=== PATIENT | male | born 1955 | race Two or more races ===

== ENCOUNTER 2019-02-01 18:28 | Inpatient (IN) | payer MEDICAID, OTHER ==
--- NOTE | 2019-02-01 18:56 | ED ---
HPI Chest Pain - HPI Summary HPI Summary: A 63 y/o male brought in by [facility] ambulance presents to [facility] with a chief complaint of mid sternal chest pain since 15:30 today. He has a Hx of [place] and has two stents, with her most recent being in 2008. He reports a Hx of HTN and denies a Hx of DM. He also reports bladder cancer and is planning on having surgery. He denies any Hx of blood clots in his legs or lungs but says that his right calf has been swelling up for the past 3-4 months. He says that he smokes less than 10 cigarettes per day. He was given NTG CARTON WRAPPER and it helped some because his pain was a 9/10 and is now a 7/10 in severity. - History of Current Complaint Chief Complaint: EDChestPainROMI Time Seen by Provider: 02/01/19 18:46 Hx Obtained From: Patient, EMS Onset/Duration: Started Hours Ago, Still Present Time of Onset: 15:30 Timing: Constant, Lasting Hours Initial Severity: Severe Current Severity: Severe Pain Intensity: 7 Pain Scale Used: 0-10 Numeric Chest Pain Location: Mid Sternal Chest Pain Radiates: No Character: Other: - unable to describe Aggravating Factor(s): Nothing Alleviating Factor(s): Nothing Associated Signs and Symptoms: Positive: Calf Pain/Swelling - right calf swelling. Negative: Fever - Allergy/Home Medications Allergies/Adverse Reactions: Allergies Allergy/AdvReac Type Severity Reaction Status Date / Time Fish Containing Products Allergy Anaphylatic Verified 02/01/19 23:59 Shock NSAIDS (Non-Steroidal Allergy Unknown Verified 02/01/19 18:57 Anti-Inflamma Reaction Details Home Medications: Home Medications Albuterol HFA INHALER* [Ventolin HFA Inhaler*] 2 puff INH Q6H PRN 02/01/19 [ History Confirmed 02/01/19] Aspirin EC TAB* [Ecotrin EC Low Dose 81 MG*] 81 mg PO DAILY 02/01/19 [History Confirmed 02/01/19] Atorvastatin* [Lipitor*] 40 mg PO QPM 02/01/19 [History Confirmed 02/01/19] Clopidogrel TAB* [Plavix TAB*] 75 mg PO DAILY 02/01/19 [History Confirmed ] Levetiracetam XR TAB(NF) [Keppra XR (NF)] 750 mg PO BID 02/01/19 [History Confirmed 02/01/19] Metoprolol Tartrate TAB* [Lopressor TAB*] 25 mg PO BID 02/01/19 [History Confirmed 02/01/19] Nitroglycerin TAB 0.4 MG* 0.4 mg SL Q5M PRN 02/01/19 [History Confirmed 02/01/19 ] Oxybutynin TAB* [Ditropan TAB*] 5 mg PO BID 02/01/19 [History Confirmed 02/01/19 ] Ranolazine (NF) [Ranexa (NF)] 500 mg PO BID 02/01/19 [History Confirmed 02/01/19 ] Topiramate [Topamax] 50 mg PO DAILY 02/01/19 [History Confirmed 02/01/19] PMH/Surg Hx/FS Hx/Imm Hx Endocrine/Hematology History: Denies: Hx Diabetes Cardiovascular History: Reports: Hx Hypertension, Hx Myocardial Infarction Infectious Disease History: Yes Infectious Disease History: Denies: Traveled Outside the [place] in Last 30 Days - Family History Known Family History: Positive: Hypertension, Other - positive: colon cancer, CVA - Social History Alcohol Use: None Hx Substance Use: No Substance Use Type: Reports: None Hx Tobacco Use: Yes Smoking Status (MU): Light Every Day Tobacco Smoker Type: Cigarettes - less than 10 per day Review of Systems Negative: Fever Positive: Chest Pain Positive: Other - positive: right calf swelling All Other Systems Reviewed And Are Negative: Yes Physical Exam - Summary Physical Exam Summary: GENERAL: Patient is a well-developed and nourished M who is lying comfortable in the stretcher. Patient is not in any acute respiratory distress. HEAD AND FACE: Normocephalic EYES: PERRLA, EOMI x 2. EARS: Hearing grossly intact. MOUTH: Oropharynx within normal limits. NECK: Supple, trachea is midline, no adenopathy, no JVD, no carotid bruit. CHEST: Symmetric, no tenderness at palpation LUNGS: Clear to auscultation bilaterally. No wheezing or crackles. CVS: Regular rate and rhythm, S1 and S2 present, no murmurs or gallops appreciated. ABDOMEN: Soft, non-tender. Bowel sounds are normal. No abnormal abdominal pulsations. EXTREMITIES: TTP in right posterior calf but did not appreciate any swelling or redness NEURO: Alert and oriented x 3. No acute neurological deficits. Speech is normal and follows commands. SKIN: Dry and warm Triage Information Reviewed: Yes Vital Signs On Initial Exam: Initial Vitals Temp Pulse Resp BP Pulse Ox 97.2 F 65 18 125/67 97 02/01/19 18:35 02/01/19 18:35 02/01/19 18:35 02/01/19 18:35 02/01/19 18:35 Vital Signs Reviewed: Yes Diagnostics - Vital Signs Vital Signs Temp Pulse Resp BP Pulse Ox 02/01/19 18:35 97.2 F 65 18 125/67 97 - Laboratory Result Diagrams: 02/02/19 06:13 02/02/19 06:14 Lab Statement: Any lab studies that have been ordered have been reviewed, and results considered in the medical decision making process. - Radiology CXR Radiology Interpretation Completed By: ED Physician Summary of Radiographic Findings: No acute process. Pending official imaging report. - EKG 18:38 Cardiac Rate: Bradycardia - 59 bpm EKG Rhythm: Sinus Bradycardia Summary of EKG Findings: EKG at 18:38 showed sinus bradycardia at 59 bpm, ST elevation in V2 and V3 but similar to EKG done in 2009. Chest Pain Course/Dx - Course Course Of Treatment: A 63 y/o male brought in by [facility] ambulance presents to [facility] with a chief complaint of mid sternal chest pain since 15:30 today. The physical exam revealed TTP in right posterior calf but did not appreciate any swelling or redness. EKG at 18:38 showed sinus bradycardia at 59 bpm, ST elevation in V2 and V3 but similar to EKG done in 2008. In the ED course the patient was given NTG SL, Morphine IV and Plavix PO. CXR showed no acute process. Blood work and chemistries obtained. Troponin of 0.01 at 18:58. The patient will be admitted. Case discussed with hospitalist, Dr. Baugh. I discussed results with patient. The patient agrees with this plan. - Diagnoses Provider Diagnoses: Chest pain - Provider Notifications Discussed Care Of Patient With: Stephen Malone Time Discussed With Above Provider: 18:51 Instructed by Provider To: Other - agrees that the EKG looks just like the EKG done in 2009. Discharge - Sign-Out/Discharge Documenting (check all that apply): Patient Departure - admit Patient Received Moderate/Deep Sedation with Procedure: No - Discharge Plan Condition: Fair Disposition: ADMITTED TO [facility] - Billing Disposition and Condition Condition: FAIR Disposition: Admitted to [facility] - Attestation Statements Document Initiated by Audrey: Yes Documenting Scribe: Angel Roberson Provider For Whom Tane is Documenting (Include Credential): Estee Mims MD Scribe Attestation: Angel Pradhan, scribed for Estee Mims MD on 02/02/19 at 1108. Scribe Documentation Reviewed: Yes Provider Attestation: The documentation as recorded by the Angel perez accurately reflects the service I personally performed and the decisions made by me, Gianna Mims MD Status of Scribe Document: Viewed Consult Consult: Discussed case with Dr. Baugh, hospitalist, who accepted the patient for admission.
[2019-02-01] MEDS ORDERED: Nitroglycerin TAB 0.4 MG* 0.4 MG TAB SL ONE (19:03)
[2019-02-01 19:18] LABS: ABS Eosinophils 0.1 10^3/ul (0-0.6); ABS Lymphocytes 1.9 10^3/ul (1.0-4.8); ABS Monocytes 0.9 10^3/ul (0-0.8); Hematocrit 44 % (42-52); Hemoglobin 14.9 g/dL (14.0-18.0); INR 1.43 (0.82-1.09); Mean Corpuscular HGB Conc 34 g/dL (31-36); Mean Corpuscular Hemoglobin 32 pg (27-31); Mean Corpuscular Volume 95 fL (80-94); Mean Platelet Volume 9.4 fL (7.4-10.4); Nucleated Red Blood Cells % 0.1; Platelet Count 143 10^3/uL (150-450); Red Blood Count 4.65 10^6 /uL (4.18-5.48); Red Cell Distribution Width 14 % (10-15)
[2019-02-01 19:25] LABS: Troponin I 0.01 ng/mL (<0.04)
[2019-02-01 19:30] LABS: Albumin/Globulin Ratio 1.6 (1-3); BUN/Creatinine Ratio 14.5 (8-20); EGFR African American 82.1 (>60); EGFR Non-African American 67.8 (>60); Globulin 2.5 g/dL (2-4); Potassium 3.9 mmol/L (3.5-5.0); Total Bilirubin 0.5 mg/dL (0.2-1.0); Total Protein 6.5 g/dL (6.4-8.9)
[2019-02-01] MEDS ORDERED: Morphine 4 MG/ML VIAL (1 ml) 4 MG/ML VIAL IV ONE (19:53)
[2019-02-01] MEDS ORDERED: Clopidogrel TAB* 75 MG PO ONE (19:54)
[2019-02-01 20:55] LABS: HIV 4th Generation Negative (Negative)
--- NOTE | 2019-02-01 22:07 | HP ---
History of Present Illness - History of Present Illness Reason for Visit: Chest Pain History of Present Illness: 63yoM inmate with PMHx HTN, has a Hx of [place] and has two stents, with her most recent being in 2008. Here due to chest pain, substernal radiating to left jaw, sublingual nitro helped a bit for the pain but the pain recurred so had to use morphine in ER. Some chest tightness and uneasy with breathing. Palpitations, broke out in to massive sweats, one episode of vomiting. Also complaining of right calf swelling and cramps. 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 Lobato Urinary incontinence Insomnia Hepatitis C positive from tattoo history resolved on its own Past Surgical History Cystoscopy with right uretheral reimplantation in 2012 Multiple abdominal surgeries for transitional cell Ca of right kidney. Cardiac Cath in 2008 Family History Father 89 of heart attack but prior to that had total 6 [place] with stents. Mother 69 of colon cancer. Social History Alcohol Use: None Hx Substance Use: No Substance Use Type: Reports: None. Tried weed when he was younger. Hx Tobacco Use: Yes Smoking Status (MU): Light Every Day Tobacco Smoker Type: Cigarettes - less than 10 per day trying to give it up. Allergies/Adverse Reactions: Allergy/AdvReac Type Severity Reaction Status Date / Time NSAIDS (Non-Steroidal Allergy Unknown Verified 02/01/19 18:57 Anti-Inflamma Reaction Details Home Medications: Albuterol HFA INHALER* [Ventolin HFA Inhaler*] 2 puff INH Q6H PRN 02/01/19 [ History Confirmed 02/01/19] Aspirin EC TAB* [Ecotrin EC Low Dose 81 MG*] 81 mg PO DAILY 02/01/19 [History Confirmed 02/01/19] Atorvastatin* [Lipitor*] 40 mg PO QPM 02/01/19 [History Confirmed 02/01/19] Clopidogrel TAB* [Plavix TAB*] 75 mg PO DAILY 02/01/19 [History Confirmed ] Levetiracetam XR TAB(NF) [Keppra XR (NF)] 750 mg PO BID 02/01/19 [History Confirmed 02/01/19] Metoprolol Tartrate TAB* [Lopressor TAB*] 25 mg PO BID 02/01/19 [History Confirmed 02/01/19] Nitroglycerin TAB 0.4 MG* 0.4 mg SL Q5M PRN 02/01/19 [History Confirmed 02/01/19 ] Oxybutynin TAB* [Ditropan TAB*] 5 mg PO BID 02/01/19 [History Confirmed 02/01/19 ] Ranolazine (NF) [Ranexa (NF)] 500 mg PO BID 02/01/19 [History Confirmed 02/01/19 ] Topiramate [Topamax] 50 mg PO DAILY 02/01/19 [History Confirmed 02/01/19] Review of Systems - Measurements Intake and Output: Intake and Output Last 24 Hours 01/30/19 01/31/19 02/01/19 02/02/19 06:59 06:59 06:59 06:59 Weight 184 lb - Review of Systems Constitutional Symptoms: Negative: Fever Thyroid: Positive: Sweatiness Pulmonary: Negative: Cough Cardiology: Positive: Chest Pain, Shortness of Breath, Palpitations Gastroenterology: Positive: Nausea, Vomiting Negative: Abdominal Pain Objective Vital Signs - 8 hr 02/01/19 02/01/19 02/01/19 18:35 18:38 18:41 Temperature 97.2 F Pulse Rate 65 60 Respiratory 18 5 16 Rate Blood Pressure 125/67 125/67 (mmHg) O2 Sat by Pulse 97 97 Oximetry 02/01/19 02/01/19 02/01/19 19:00 19:09 19:17 Temperature Pulse Rate 66 57 58 Respiratory 15 19 16 Rate Blood Pressure 121/69 124/69 (mmHg) O2 Sat by Pulse 99 99 99 Oximetry 02/01/19 02/01/19 02/01/19 19:39 20:00 20:09 Temperature Pulse Rate 62 59 64 Respiratory 17 18 16 Rate Blood Pressure 110/65 109/67 (mmHg) O2 Sat by Pulse 97 98 99 Oximetry 02/01/19 20:17 Temperature Pulse Rate Respiratory 18 Rate Blood Pressure (mmHg) O2 Sat by Pulse Oximetry Oxygen Devices in Use Now: None Eyes: No Scleral Icterus, PERRLA Ears/Nose/Mouth/Throat: NL Teeth, Lips, Gums, Mucous Membranes Moist Neck: NL Appearance and Movements; NL JVP Respiratory: Clear to Auscultation Cardiovascular: NL Sounds; No Murmurs; No JVD, RRR Abdominal: NL Sounds; No Tenderness; No Distention, No Hepatosplenomegaly, - - Large midline surgical scar. Extremities: - - Right calf tenderness and swelling Skin: No Rash or Ulcers Neurological: Alert and Oriented x 3, NL Sensation, NL Muscle Strength and Tone Nutrition: Taking PO's Result Diagrams: 02/01/19 18:58 02/01/19 18:58 Diagnostic Imaging: Portable CXR No evidence of cardiopulmonary disease. Official radiology read pending. EKG Data: Sinus Bradycardia at 59bpm. Some J-point elevation however when compared to old EKG from 2009 no significant change. Assess/Plan/Problems-Billing Assessment: 63yoM inmate with CAD s/p stents, WPW syndrome, Renal Ca here due to chest pain and right calf swelling. - Patient Problems (1) Chest pain Current Visit: Yes Status: Acute Code(s): R07.9 - CHEST PAIN, UNSPECIFIED SNOMED Code(s): 81024893 Comment: Serial Troponins. A1c, Lipid panel. ECHO/Stress testing. No CTA given concurrent Right leg swelling due to the fact that he has history of renal Ca and doesn't have any other signs of PE such as tachycardia or hypoxia. (2) Right leg swelling Current Visit: Yes Status: Acute Code(s): M79.89 - OTHER SPECIFIED SOFT TISSUE DISORDERS SNOMED Code(s): 136527389 Comment: Follow up Venous dopplers of the RLE. Start prophylactic dose of lovenox for now. (3) Hypertension Current Visit: Yes Status: Chronic Code(s): I10 - ESSENTIAL (PRIMARY) HYPERTENSION SNOMED Code(s): 25507200 Comment: Restart home meds. (4) Hyperlipidemia Current Visit: Yes Status: Chronic Code(s): E78.5 - HYPERLIPIDEMIA, UNSPECIFIED SNOMED Code(s): 63775388 Comment: Restart home meds. (5) WPW (Qdefw-Gcnuwqiqs-Mlajm syndrome) Current Visit: Yes Status: Chronic Code(s): I45.6 - PRE-EXCITATION SYNDROME SNOMED Code(s): 41925884 Comment: Couldn't appreciate on today's EKG will monitor on tele. (6) Seizure disorder Current Visit: Yes Status: Chronic Code(s): G40.909 - EPILEPSY, UNSP, NOT INTRACTABLE, WITHOUT STATUS EPILEPTICUS SNOMED Code(s): 698619611 Comment: Alisia winchester (7) Renal cell cancer Current Visit: Yes Status: Chronic Code(s): C64.9 - MALIGNANT NEOPLASM OF UNSP KIDNEY, EXCEPT RENAL PELVIS SNOMED Code(s): 847156751 Comment: Out patient follow up (8) History of hepatitis C Current Visit: Yes Status: Chronic Code(s): Z86.19 - PERSONAL HISTORY OF OTHER INFECTIOUS AND PARASITIC DISEASES SNOMED Code(s): 37491710975851 Comment:
[2019-02-01] MEDS ORDERED: Nitroglycerin TAB 0.4 MG* 0.4 MG TAB SL PRN (23:08)
[2019-02-01] MEDS ORDERED: Albuterol HFA INHALER* 8 gm MDI INH PRN (23:08)
[2019-02-01] MEDS: Enoxaparin(*) 40 MG/0.4 ML SYR SUBCUT SCH (23:42)
[2019-02-01] MEDS: NS 0.9% 1000 ML** 1,000 ML IV SCH (23:42)
[2019-02-01] MEDS: Morphine INJ* 2 MG/ML 1 ML SYRINGE (TWO MG - NEW SYRINGE VERSION) IV PRN (23:42)
[2019-02-02 00:38] LABS: Urine Appearance Clear; Urine Bacteria Absent (Absent); Urine Bilirubin Negative (Negative); Urine Blood 2+ (Negative); Urine Color Yellow; Urine Glucose Negative (Negative); Urine Ketones Negative (Negative); Urine Nitrite Negative (Negative); Urine Protein Negative (Negative); Urine Red Blood Cell 3+(>10/hpf) (Absent); Urine Specific Gravity 1.023 (1.010-1.030); Urine Squamous Epithelial Cell Present (Absent); Urine Urobilinogen Negative (Negative); Urine White Blood Cell 3+(>20/hpf) (Absent)
[2019-02-02] MEDS: Morphine INJ* 2 MG/ML 1 ML SYRINGE (TWO MG - NEW SYRINGE VERSION) IV PRN ×5 (03:49→21:25)
[2019-02-02 07:22] LABS: ABS Eosinophils 0.1 10^3/ul (0-0.6); ABS Lymphocytes 2.5 10^3/ul (1.0-4.8); ABS Monocytes 0.7 10^3/ul (0-0.8); ABS Neutrophils 3.4 10^3/ul (1.5-7.7); Eosinophil % 2.1 %; Hematocrit 44 % (42-52); Mean Corpuscular HGB Conc 35 g/dL (31-36); Mean Corpuscular Hemoglobin 33 pg (27-31); Mean Corpuscular Volume 96 fL (80-94); Mean Platelet Volume 9.6 fL (7.4-10.4); Nucleated Red Blood Cells % 0.1; Platelet Count 128 10^3/uL (150-450); Red Blood Count 4.56 10^6 /uL (4.18-5.48); Red Cell Distribution Width 14 % (10-15); White Blood Count 6.8 10^3/uL (3.5-10.8)
[2019-02-02 07:39] LABS: BUN/Creatinine Ratio 14.5 (8-20); Calcium 8.2 mg/dL (8.6-10.3); EGFR African American 82.1 (>60); EGFR Non-African American 67.8 (>60); HDL Cholesterol 27.5 mg/dL; Potassium 3.6 mmol/L (3.5-5.0)
[2019-02-02] MEDS: Metoprolol Tartrate TAB* 25 MG PO SCH ×2 (07:46→21:25)
[2019-02-02] MEDS: CMCS:Ranolazine (NF) 500 MG TAB PO SCH ×2 (07:46→21:41)
[2019-02-02] MEDS: Topiramate TAB(*) 25 MG PO SCH (07:47)
[2019-02-02] MEDS: Oxybutynin TAB* 5 MG PO SCH ×2 (07:47→21:25)
[2019-02-02] MEDS: CMCS:Levetiracetam XR TAB(NF) 750 MG TAB.XR PO SCH ×2 (07:47→21:41)
[2019-02-02] MEDS: Aspirin EC TAB* 81 MG TAB.EC PO SCH (07:47)
[2019-02-02] MEDS: Clopidogrel TAB* 75 MG PO SCH (07:47)
[2019-02-02] MEDS: Acetaminophen TAB* 325 MG PO PRN ×2 (07:59→17:11)
[2019-02-02] MEDS ORDERED: Iodixanol* (CONTRAST) 320 MG/ML 100 ML SDV IV ONE (11:54)
--- NOTE | 2019-02-02 12:02 | PN ---
Subjective Date of Service: 02/02/19 Interval History: Patient reports that that he continues to have chest pain which he reports is relieved with morphine. States that he had an episode of diaphoresis and chest pain and vomited x 1 which felt similar to his previous [place]. Patient also c/o of neck pain that radiates down left arm with numbness and tingling. Patient reports that he developed difficulty with speaking at approximately 4 pm yesterday. denies headache, dizzinesses, facial droop, weakness on one side. does report numbness and tingling to left arm. Denies any abd pain pain n/v/d. currently denies shortness of breath. Family History: Unchanged from Admission Social History: Unchanged from Admission Past Medical History: Unchanged from Admission Objective Active Medications: Acetaminophen (Tylenol Tab*) 650 mg PO Q6H PRN PRN Reason: PAIN - MILD TO MODERATE Last Admin: 02/02/19 07:59 Dose: 650 mg Albuterol (Ventolin Hfa Inhaler*) 2 puff INH Q6H PRN PRN Reason: SHORTNESS OF BREATH Aspirin (Aspirin Ec Tab*) 81 mg PO DAILY [facility] Last Admin: 02/02/19 07:47 Dose: 81 mg Atorvastatin Calcium (Lipitor*) 40 mg PO QPM [facility] Clopidogrel Bisulfate (Plavix Tab*) 75 mg PO DAILY [facility] Last Admin: 02/02/19 07:47 Dose: 75 mg Enoxaparin Sodium (Lovenox(*)) 40 mg SUBCUT Q24H [facility] Last Admin: 02/01/19 23:42 Dose: 40 mg Sodium Chloride (Ns 0.9% 1000 Ml) 1,000 mls @ 75 mls/hr IV PER RATE [facility] Last Admin: 02/01/19 23:42 Dose: 75 mls/hr Levetiracetam (Keppra Xr (Nf)) 750 mg PO BID [facility]; Protocol Last Admin: 02/02/19 07:47 Dose: 750 mg Metoprolol Tartrate (Lopressor Tab*) 25 mg PO BID [facility] Last Admin: 02/02/19 07:46 Dose: 25 mg Morphine Sulfate (Morphine Inj (Syringe))*) 2 mg IV Q4H PRN PRN Reason: PAIN - MODERATE TO SEVERE Last Admin: 02/02/19 07:56 Dose: 2 mg Nitroglycerin (Nitroglycerin Tab 0.4 Mg*) 0.4 mg SL Q5M PRN PRN Reason: PAIN - CHEST Oxybutynin Chloride (Ditropan Tab*) 5 mg PO BID [facility] Last Admin: 02/02/19 07:47 Dose: 5 mg Ranolazine (Ranexa (Nf)) 500 mg PO BID [facility]; Protocol Last Admin: 02/02/19 07:46 Dose: 500 mg Topiramate (Topamax(*)) 50 mg PO DAILY [facility] Last Admin: 02/02/19 07:47 Dose: 50 mg Vital Signs - 8 hr 02/02/19 02/02/19 02/02/19 05:43 07:44 07:56 Temperature 97.9 F Pulse Rate 58 Respiratory 18 18 16 Rate Blood Pressure 129/86 (mmHg) O2 Sat by Pulse 99 Oximetry Oxygen Devices in Use Now: None Appearance: alert oriented x3 , disarthric at times Eyes: No Scleral Icterus Ears/Nose/Mouth/Throat: Clear Oropharnyx, Mucous Membranes Moist Neck: NL Appearance and Movements; NL JVP, Trachea Midline Respiratory: Symmetrical Chest Expansion and Respiratory Effort, Clear to Auscultation Cardiovascular: NL Sounds; No Murmurs; No JVD, No Edema Abdominal: NL Sounds; No Tenderness; No Distention Extremities: No Edema, No Clubbing, Cyanosis Skin: No Rash or Ulcers Neurological: Alert and Oriented x 3, - - speech is clear with disarthria noted , smile is equal, tongue midline, no facial asymmetry, left arm with fine tremor, no pronator drift, hand clam shucking machine tender are equal, no leg drift. push/pull intact to bilat upper and lower ext. Nutrition: Taking PO's Result Diagrams: 02/02/19 06:13 02/02/19 06:14 Microbiology and Other Data: Microbiology 02/01/19 23:45 Nasal Screen MRSA (PCR) - Final Nasal Mrsa Not Detected Diagnostic Imaging: Portable CXR No evidence of cardiopulmonary disease. Official radiology read pending. EKG Data: Sinus Bradycardia at 59bpm. Some J-point elevation however when compared to old EKG from 2008 no significant change. Assess/Plan/Problems-Billing Assessment: 63yoM inmate with CAD s/p stents, WPW syndrome, Renal Ca here due to chest pain and right calf swelling. Reports difficulty with speech since 4 pm yesterday. - Patient Problems (1) Chest pain Current Visit: Yes Status: Acute Code(s): R07.9 - CHEST PAIN, UNSPECIFIED SNOMED Code(s): 24902170 Comment: - patient reports that he has never had complete relief of his chest pain since admission- reports that morphine improves the pain but it returns. Patient reports that he takes MS contin 30 mg at home for renal cancer pain- will confirm with five points Serial Troponins- negative A1c 5.9 Lipid panel- LDL 33 ECHO/Stress testing- pending VL right leg pending (2) Difficulty with speech Current Visit: Yes Status: Acute Code(s): R47.9 - UNSPECIFIED SPEECH DISTURBANCES SNOMED Code(s): 857085087 Comment: - reports diffiuculty with speech since yesterday at 4 pm - noted to have difficulty with speech this AM during bedside evaluation - will order CT of the brain/ CTA head/ neck and MRI of brain- pending - consult to neurology - also noted to have fine tremor to left arm (3) Right leg swelling Current Visit: Yes Status: Acute Code(s): M79.89 - OTHER SPECIFIED SOFT TISSUE DISORDERS SNOMED Code(s): 494544806 Comment: Follow up Venous dopplers of the RLE. Start prophylactic dose of lovenox for now. (4) Hyperlipidemia Current Visit: Yes Status: Chronic Code(s): E78.5 - HYPERLIPIDEMIA, UNSPECIFIED SNOMED Code(s): 52086393 Comment: continue home medication (5) Hypertension Current Visit: Yes Status: Chronic Code(s): I10 - ESSENTIAL (PRIMARY) HYPERTENSION SNOMED Code(s): 56671788 Comment: Restart home meds. (6) Renal cell cancer Current Visit: Yes Status: Chronic Code(s): C64.9 - MALIGNANT NEOPLASM OF UNSP KIDNEY, EXCEPT RENAL PELVIS SNOMED Code(s): 457253696 Comment: - continue with outpatient follow up (7) Seizure disorder Current Visit: Yes Status: Chronic Code(s): G40.909 - EPILEPSY, UNSP, NOT INTRACTABLE, WITHOUT STATUS EPILEPTICUS SNOMED Code(s): 344482654 Comment: continue keppra Status and Disposition: inpatient
[2019-02-02] MEDS: NS 0.9% 1000 ML** 1,000 ML IV SCH (15:44)
[2019-02-02] MEDS: Atorvastatin* 40 MG TAB PO SCH (17:11)
--- NOTE | 2019-02-02 19:38 | CONS ---
NEUROLOGY CONSULTATION: DATE OF CONSULT: 02/02/19 REFERRING PROVIDER: Melissa Luevano NP. LOCATION: The patient is an inpatient in room 451. CHIEF COMPLAINT: Altered speech, left-sided numbness. HISTORY OF PRESENT ILLNESS: Arik Bowling is a 63-year-old right-handed inmate who presented to the [facility] on 02/01/19 with complaints of chest pain. He has a history of coronary artery disease with stenting in 2008. The chest pain was retrosternal and radiating to the left jaw and sublingual nitro glycerin helped to some extent, but did not resolve it. In the emergency room, he was given morphine . He had sweats and vomiting. Sometime after admission, he complained of difficulty speaking. He st ates he was slurring his words. He states at the same time he noticed numbness of the left arm and h and. With specific question, he has noticed some numbness of the left face. He has not noticed any numbness in the lower extremities. He has right calf pain and right ankle pain, which sound to be ch ronic. He is chronically on aspirin and Plavix because of his coronary artery disease and stents pre sumably. There is no prior history of stroke. He does have a history of transitional cell renal car cinoma with multiple surgeries around 2005 and then chemotherapy. He apparently is now in remission and is scheduled to see urologist for reevaluation. There is a history of both hypertension and hype rlipidemia, but not of diabetes. PAST MEDICAL HISTORY: 1. Hypertension. 2. Hyperlipidemia. 3. Coronary artery disease. 4. Tmpbx-Hvdpjwuhg-Fzncc syndrome. 5. Complex partial seizures. 6. Transitional cell renal cancer. 7. Insomnia. 8. Multiple abdominal surgeries. MEDICATIONS: On admission consist of: 1. Plavix 75 mg p.o. daily. 2. Aspirin 81 mg p.o. daily. 3. Keppra extended release 750 mg p.o. b.i.d. 4. Oxybutynin 5 mg p.o. b.i.d. 5. Topiramate 50 mg p.o. daily. FAMILY HISTORY: Noncontributory. REVIEW OF SYSTEMS: Notable for episodic migraines. He occasionally will get a visual scotoma with i t. He has chronic right ankle pain and uses a cane. No chronic shortness of breath. No current vis ual changes. No recent fevers. PHYSICAL EXAMINATION: He is well nourished and well hydrated. Temperature is 97.7, blood pressure 1 01/56, heart rate 52 and regular, respiratory rate is 18, and oxygen saturation is 98% on room air. Heart tones are normal. There are no cervical bruits. Lungs are clear. Oral mucosa is moist and at raumatic. Neurologic Exam: Pupils react equally from 4 to 2.5 mm. Eye movements are normal. Visual blunt are full to confrontation. Funduscopic exam is normal bilaterally. Facial musculature is symmetric. Fa cial sensation is reported as decreased pin in the left face relative to the right. Palate and tongu e appear normal, tongue protrudes in the midline, and palate rises symmetrically. He has an intermit tent stuttering dysarthria. Hearing is intact. Motor exam reveals normal strength proximally and distally in the upper and lower extremities. There is no pronator drift. Sensory exam is notable for diminished pin discrimination on the left side diffusely in the arm and l eg compared to the right. Light touch is intact. Reflexes are symmetric. Gait was not tested; he has ankle bracelets on. Language is fluent other than occasional stuttering. Memory seems intact. Attention, concentration, and fund of knowledge seem adequate. LABORATORY DATA/DIAGNOSTIC STUDIES: Laboratory data is notable for a normal CBC today, his white blo od cell count was slightly elevated at 11.0 yesterday, platelet count was 143,000 yesterday and is do wn to 128,000 today. INR at admission is elevated at 1.43. Chemistries are unremarkable. Troponin was 0.01 when he came in, 0.03 last night, 0.02 this morning. Liver enzymes are normal. Cholesterol this morning is 84 and LDL 33. Urinalysis is notable for 2+ blood, 3+ red blood cells, 3+ white blo od cells, absent bacteria, present yeast, 1+ leukocyte esterase. Other data notable for a CT angiogram of head and neck interpreted as normal. Brain CT apparently fol lowing the CTA with contrast did not demonstrate any masses. I could not pull up the images to review . Impression also with the CTA is that the venous sinuses demonstrate no evidence of thrombosis. IMPRESSION AND PLAN: Impression is that of a possible cerebrovascular event. Fortunately, a CT scan does not show any metastasis, but it is still possible he has a small metastasis not visible on CT. He has an MRI of the brain pending for Monday. Apparently, he has a stress test pending for Monday a s well. He is already on dual antiplatelet therapy and has hematuria, so I am very reluctant to augm ent his anticoagulation. Also, his platelet count has dropped a bit and his INR was elevated at base line. I think at this point I would just await the results of the MRI, schedule transthoracic echoca rdiogram and exercise stress test, and monitor him neurologically. I will continue to follow him derrick dawson with you. [id number]/[facility] #: [id number]
[2019-02-02] MEDS: Enoxaparin(*) 40 MG/0.4 ML SYR SUBCUT SCH (21:24)
[2019-02-03] MEDS: Morphine INJ* 2 MG/ML 1 ML SYRINGE (TWO MG - NEW SYRINGE VERSION) IV PRN ×4 (03:13→20:39)
[2019-02-03] MEDS: NS 0.9% 1000 ML** 1,000 ML IV SCH (05:25)
[2019-02-03] MEDS: CMCS:Levetiracetam XR TAB(NF) 750 MG TAB.XR PO SCH ×2 (08:48→20:28)
[2019-02-03] MEDS: Oxybutynin TAB* 5 MG PO SCH ×2 (08:48→20:33)
[2019-02-03] MEDS: Aspirin EC TAB* 81 MG TAB.EC PO SCH (08:48)
[2019-02-03] MEDS: Topiramate TAB(*) 25 MG PO SCH (08:48)
[2019-02-03] MEDS: Clopidogrel TAB* 75 MG PO SCH (08:48)
[2019-02-03] MEDS: CMCS:Ranolazine (NF) 500 MG TAB PO SCH ×2 (08:48→20:32)
[2019-02-03] MEDS: Metoprolol Tartrate TAB* 25 MG PO SCH ×2 (08:48→20:30)
[2019-02-03] MEDS: Multivitamins/Minerals TAB PO SCH (12:32)
--- NOTE | 2019-02-03 14:29 | CONS ---
NEUROLOGY CONSULT FOLLOWUP: DATE OF FOLLOWUP: 02/03/19 LOCATION: He is an inpatient in room 451. HOSPITALIST: Melissa Luevano NP CHIEF COMPLAINT: Left-sided numbness, difficulty with speech. INTERVAL HISTORY: Since yesterday, Mr. Bowling feels the same. He still feels numbness of his left side. He notes that he bit the inside of his left cheek. He otherwise has not noticed any problems swallowing. He still feels like his speech is off. MEDICATIONS: Are reviewed and he is on: 1. Albuterol inhaler q.6 hours p.r.n. 2. Aspirin 81 mg p.o. daily. 3. Atorvastatin 40 mg p.o. daily. 4. Plavix 75 mg p.o. daily. 5. Enoxaparin 40 mg subcutaneous q.24 hours. 6. Keppra XR 750 mg p.o. b.i.d. 7. Metoprolol 12.5 mg p.o. b.i.d. 8. Ditropan 5 mg p.o. b.i.d. 9. Ranexa 500 mg p.o. b.i.d. 10. Topiramate 50 mg p.o. daily. PHYSICAL EXAM: He is well nourished and well hydrated. Temperature 98.1, blood pressure 111/64, heart rate is running in the 50s. On neurological exam, facial musculature is symmetric. Palate and tongue appear normal and speech is clear. On motor exam, he feels normal. Strength in the upper extremities without drift. Finger taps are normal in the right hand and somewhat irregular and telegraphic in the left hand. There is no rest or action tremor. On sensory exam, he reports diminished pin and light touch in the left arm and face relative to the right. He reports diminished vibration in the left hand relative to the right. He has splitting of vibration on his forehead, however, declaring the right to be less than the left. LABORATORY DATA: There is no additional laboratory data since yesterday to review. IMPRESSION AND PLAN: Impression is that of a possible right hemisphere cerebrovascular event. He has some functionality to exam, however, in terms of splitting of vibration on his forehead and a functional appearing finger tapping abnormality in the left hand. He has an MRI scheduled for tomorrow which will help sort things out in terms of whether he has actually had a cerebrovascular event or not. [id number]/[facility] #: [id number] SYDNI
--- NOTE | 2019-02-03 16:01 | PN ---
Subjective Date of Service: 02/03/19 Interval History: Reports that chest pain has resolved. Continues to report difficulty with speech and feeling that his words are slurred. Denies chest pain or shortness of breath. Denies abd pain n/v/d. denies fever or chills Family History: Unchanged from Admission Social History: Unchanged from Admission Past Medical History: Unchanged from Admission Objective Active Medications: Acetaminophen (Tylenol Tab*) 650 mg PO Q6H PRN PRN Reason: PAIN - MILD TO MODERATE Last Admin: 02/02/19 17:11 Dose: 650 mg Albuterol (Ventolin Hfa Inhaler*) 2 puff INH Q6H PRN PRN Reason: SHORTNESS OF BREATH Aspirin (Aspirin Ec Tab*) 81 mg PO DAILY [facility] Last Admin: 02/03/19 08:48 Dose: 81 mg Atorvastatin Calcium (Lipitor*) 40 mg PO QPM [facility] Last Admin: 02/02/19 17:11 Dose: 40 mg Clopidogrel Bisulfate (Plavix Tab*) 75 mg PO DAILY [facility] Last Admin: 02/03/19 08:48 Dose: 75 mg Enoxaparin Sodium (Lovenox(*)) 40 mg SUBCUT Q24H [facility] Last Admin: 02/02/19 21:24 Dose: 40 mg Levetiracetam (Keppra Xr (Nf)) 750 mg PO BID [facility]; Protocol Last Admin: 02/03/19 08:48 Dose: 750 mg Metoprolol Tartrate (Lopressor Tab*) 12.5 mg PO BID [facility] Morphine Sulfate (Morphine Inj (Syringe))*) 1 mg IV Q4H PRN PRN Reason: PAIN - MODERATE TO SEVERE Last Admin: 02/03/19 15:26 Dose: 1 mg Multivitamins/Minerals (Theragran/Minerals Tab*) 1 tab PO DAILY [facility] Last Admin: 02/03/19 12:32 Dose: 1 tab Nitroglycerin (Nitroglycerin Tab 0.4 Mg*) 0.4 mg SL Q5M PRN PRN Reason: PAIN - CHEST Oxybutynin Chloride (Ditropan Tab*) 5 mg PO BID [facility] Last Admin: 02/03/19 08:48 Dose: 5 mg Ranolazine (Ranexa (Nf)) 500 mg PO BID [facility]; Protocol Last Admin: 02/03/19 08:48 Dose: 500 mg Topiramate (Topamax(*)) 50 mg PO DAILY [facility] Last Admin: 02/03/19 08:48 Dose: 50 mg Vital Signs - 8 hr 02/03/19 02/03/19 02/03/19 08:08 08:48 09:53 Temperature 97.6 F Pulse Rate 47 Respiratory 20 18 18 Rate Blood Pressure 116/68 (mmHg) O2 Sat by Pulse 98 Oximetry 02/03/19 02/03/19 02/03/19 11:52 15:15 15:26 Temperature 98.1 F 98.4 F Pulse Rate 51 55 Respiratory 19 16 16 Rate Blood Pressure 111/64 117/64 (mmHg) O2 Sat by Pulse 98 97 Oximetry Oxygen Devices in Use Now: None Appearance: alert, appears comfortable , no acute distress Eyes: No Scleral Icterus Ears/Nose/Mouth/Throat: Clear Oropharnyx, Mucous Membranes Moist Neck: NL Appearance and Movements; NL JVP, Trachea Midline Respiratory: Symmetrical Chest Expansion and Respiratory Effort, Clear to Auscultation Cardiovascular: NL Sounds; No Murmurs; No JVD, No Edema Abdominal: NL Sounds; No Tenderness; No Distention Extremities: No Edema, No Clubbing, Cyanosis Skin: No Rash or Ulcers Neurological: Alert and Oriented x 3, - - CN II-XII intact, no pronator drift, no leg drift, ext strength is equal, tongue is midline, speech is clear, hand binder and wrapper packer equal Nutrition: Taking PO's Result Diagrams: 02/02/19 06:13 02/02/19 06:14 Microbiology and Other Data: Microbiology 02/01/19 23:45 Nasal Screen MRSA (PCR) - Final Nasal Mrsa Not Detected Diagnostic Imaging: Portable CXR No evidence of cardiopulmonary disease. Official radiology read pending. EKG Data: Sinus Bradycardia at 59bpm. Some J-point elevation however when compared to old EKG from 2009 no significant change. Assess/Plan/Problems-Billing Assessment: 63yoM inmate with CAD s/p stents, WPW syndrome, Renal Ca here due to chest pain and right calf swelling. Reports difficulty with speech since 4 pm yesterday. - Patient Problems (1) Chest pain Current Visit: Yes Status: Acute Code(s): R07.9 - CHEST PAIN, UNSPECIFIED SNOMED Code(s): 01970433 Comment: - resolved - reports no pain today Patient reports that he takes MS contin 30 mg at home for renal cancer pain- 5 points with no record of this medication Serial Troponins- negative A1c 5.9 Lipid panel- LDL 33 ECHO/Stress testing- pending VL right leg - negative for DVT (2) Difficulty with speech Current Visit: Yes Status: Acute Code(s): R47.9 - UNSPECIFIED SPEECH DISTURBANCES SNOMED Code(s): 243405755 Comment: - reports diffiuculty with speech, fine tremor to left arm - contnues to c/o decreased sensationin left arm,leg,and face - noted to have difficulty with speech this AM during bedside evaluation - CT of the brain/ CTA head/ neck and MRI of brain- NO PE, CT brain - NO acute pathology - consult to neurology- will get MRI tomorrow w/wo contrast (3) Right leg swelling Current Visit: Yes Status: Acute Code(s): M79.89 - OTHER SPECIFIED SOFT TISSUE DISORDERS SNOMED Code(s): 692240169 Comment: Follow up Venous dopplers of the RLE.- NO EVIDENCE OF DEEP VENOUS THROMBOSIS IS IDENTIFIED. (4) Hyperlipidemia Current Visit: Yes Status: Chronic Code(s): E78.5 - HYPERLIPIDEMIA, UNSPECIFIED SNOMED Code(s): 09854227 Comment: continue home medication (5) Hypertension Current Visit: Yes Status: Chronic Code(s): I10 - ESSENTIAL (PRIMARY) HYPERTENSION SNOMED Code(s): 57282200 Comment: Restart home meds. (6) Renal cell cancer Current Visit: Yes Status: Chronic Code(s): C64.9 - MALIGNANT NEOPLASM OF UNSP KIDNEY, EXCEPT RENAL PELVIS SNOMED Code(s): 695401093 Comment: - continue with outpatient follow up (7) Seizure disorder Current Visit: Yes Status: Chronic Code(s): G40.909 - EPILEPSY, UNSP, NOT INTRACTABLE, WITHOUT STATUS EPILEPTICUS SNOMED Code(s): 639748064 Comment: continue keppra (8) DVT prophylaxis Current Visit: Yes Status: Acute Code(s): Z29.9 - ENCOUNTER FOR PROPHYLACTIC MEASURES, UNSPECIFIED SNOMED Code(s): 129576779 Comment: lovenox (9) Full code status Current Visit: Yes Status: Acute Code(s): Z78.9 - OTHER SPECIFIED HEALTH STATUS SNOMED Code(s): 258496186 Status and Disposition: inpatient- discharge when medically stable - likely tomorrow after stress test / MRI
[2019-02-03] MEDS: Acetaminophen TAB* 325 MG PO PRN (17:23)
[2019-02-03] MEDS: Atorvastatin* 40 MG TAB PO SCH (17:24)
[2019-02-03] MEDS: Enoxaparin(*) 40 MG/0.4 ML SYR SUBCUT SCH (22:00)
[2019-02-04] MEDS: Morphine INJ* 2 MG/ML 1 ML SYRINGE (TWO MG - NEW SYRINGE VERSION) IV PRN ×4 (01:30→15:09)
[2019-02-04] MEDS: Acetaminophen TAB* 325 MG PO PRN ×2 (04:17→13:18)
[2019-02-04 08:37] LABS: Hematocrit 45 % (42-52); Hemoglobin 15.4 g/dL (14.0-18.0); Mean Corpuscular HGB Conc 34 g/dL (31-36); Mean Corpuscular Hemoglobin 33 pg (27-31); Mean Corpuscular Volume 95 fL (80-94); Mean Platelet Volume 8.7 fL (7.4-10.4); Platelet Count 130 10^3/uL (150-450); Red Blood Count 4.73 10^6 /uL (4.18-5.48); Red Cell Distribution Width 14 % (10-15); White Blood Count 5.4 10^3/uL (3.5-10.8)
[2019-02-04 08:53] LABS: BUN/Creatinine Ratio 17.3 (8-20); Calcium 8.7 mg/dL (8.6-10.3); EGFR African American 82.1 (>60); EGFR Non-African American 67.8 (>60); Potassium 4.1 mmol/L (3.5-5.0)
[2019-02-04] MEDS: CMCS:Ranolazine (NF) 500 MG TAB PO SCH (09:58)
[2019-02-04] MEDS: Multivitamins/Minerals TAB PO SCH (09:59)
[2019-02-04] MEDS: Metoprolol Tartrate TAB* 25 MG PO SCH (09:59)
[2019-02-04] MEDS: Aspirin EC TAB* 81 MG TAB.EC PO SCH (09:59)
[2019-02-04] MEDS: Clopidogrel TAB* 75 MG PO SCH (10:00)
[2019-02-04] MEDS: Topiramate TAB(*) 25 MG PO SCH (10:00)
[2019-02-04] MEDS: CMCS:Levetiracetam XR TAB(NF) 750 MG TAB.XR PO SCH (10:01)
[2019-02-04] MEDS: Oxybutynin TAB* 5 MG PO SCH (10:01)
[2019-02-04] MEDS ORDERED: Gadoteridol* (CONTRAST) 279.3 MG/ML 10 ML IV ONE (11:04)
[2019-02-04] MEDS ORDERED: Regadenoson* 0.4 MG/5 ML SYRINGE ONE (12:20)
--- NOTE | 2019-02-04 16:19 | PN ---
Subjective Date of Service: 02/04/19 Length of Stay: 3 Days Neurology is following for subjective left sided paresthesia. Interval History: Reviewed Dr. Duran's consultation. The patient is a 63-year-old right-handed man who is incarcerated who has history of TIA, headaches, and reported seizures. He presented to [facility] with symptoms of left-side numbness and difficulty with speech. He continues to have left sided numbness. His speech pattern fluctuates as he sometimes has stuttering of speech. Today, the patient stated that he still has paresthesia from "head to toe" on the left. He is anxious and not sure why he is having these symptoms. He denied any headaches. He feels some fatigue in the left arm and leg. Brain MRI with/without contrast completed on 02/04/2019: subcentimeter focus of T2 Flair hyperintensity in the right frontal lobe which is nonspecific. No acute intracranial abnormality or stroke. Review of Systems: Denied CP, SOB, or palpitations. Family History: Unchanged from Admission Social History: Unchanged from Admission Past Medical History: Unchanged from Admission Objective Active Medications: Acetaminophen (Tylenol Tab*) 650 mg PO Q6H PRN PRN Reason: PAIN - MILD TO MODERATE Last Admin: 02/04/19 13:18 Dose: 650 mg Albuterol (Ventolin Hfa Inhaler*) 2 puff INH Q6H PRN PRN Reason: SHORTNESS OF BREATH Aspirin (Aspirin Ec Tab*) 81 mg PO DAILY [facility] Last Admin: 02/04/19 09:59 Dose: 81 mg Atorvastatin Calcium (Lipitor*) 40 mg PO QPM [facility] Last Admin: 02/03/19 17:24 Dose: 40 mg Clopidogrel Bisulfate (Plavix Tab*) 75 mg PO DAILY [facility] Last Admin: 02/04/19 10:00 Dose: 75 mg Enoxaparin Sodium (Lovenox(*)) 40 mg SUBCUT Q24H [facility] Last Admin: 02/03/19 22:00 Dose: 40 mg Levetiracetam (Keppra Xr (Nf)) 750 mg PO BID [facility]; Protocol Last Admin: 02/04/19 10:01 Dose: 750 mg Metoprolol Tartrate (Lopressor Tab*) 12.5 mg PO BID [facility] Last Admin: 02/04/19 09:59 Dose: 12.5 mg Morphine Sulfate (Morphine Inj (Syringe))*) 1 mg IV Q4H PRN PRN Reason: PAIN - MODERATE TO SEVERE Last Admin: 02/04/19 15:09 Dose: 1 mg Multivitamins/Minerals (Theragran/Minerals Tab*) 1 tab PO DAILY [facility] Last Admin: 02/04/19 09:59 Dose: 1 tab Nitroglycerin (Nitroglycerin Tab 0.4 Mg*) 0.4 mg SL Q5M PRN PRN Reason: PAIN - CHEST Oxybutynin Chloride (Ditropan Tab*) 5 mg PO BID [facility] Last Admin: 02/04/19 10:01 Dose: 5 mg Ranolazine (Ranexa (Nf)) 500 mg PO BID [facility]; Protocol Last Admin: 02/04/19 09:58 Dose: 500 mg Topiramate (Topamax(*)) 50 mg PO DAILY [facility] Last Admin: 02/04/19 10:00 Dose: 50 mg Vital Signs 02/03/19 02/03/19 02/03/19 17:25 20:00 20:25 Temperature Pulse Rate 61 Respiratory 16 20 Rate Blood Pressure 114/65 (mmHg) O2 Sat by Pulse Oximetry 02/03/19 02/03/19 02/03/19 20:39 20:53 21:40 Temperature 98.3 F Pulse Rate 55 Respiratory 19 20 19 Rate Blood Pressure 129/64 (mmHg) O2 Sat by Pulse 97 Oximetry 02/03/19 02/04/19 02/04/19 23:40 01:30 02:30 Temperature 98.2 F Pulse Rate 51 Respiratory 22 21 20 Rate Blood Pressure 110/57 (mmHg) O2 Sat by Pulse 97 Oximetry 02/04/19 02/04/19 02/04/19 03:21 03:34 05:36 Temperature 97.8 F Pulse Rate 52 Respiratory 20 20 Rate Blood Pressure 96/58 103/52 (mmHg) O2 Sat by Pulse 98 Oximetry 02/04/19 02/04/19 02/04/19 06:36 07:55 08:00 Temperature 97.8 F Pulse Rate 51 Respiratory 20 19 18 Rate Blood Pressure 101/50 (mmHg) O2 Sat by Pulse 98 Oximetry 02/04/19 02/04/19 02/04/19 10:02 13:00 15:09 Temperature 97.7 F Pulse Rate 51 Respiratory 18 16 16 Rate Blood Pressure 118/68 (mmHg) O2 Sat by Pulse 99 Oximetry Intake and Output Last 24 Hours 02/02/19 02/03/19 02/04/19 02/05/19 06:59 06:59 06:59 06:59 Intake Total 0 3825 4089 700 Output Total 275 3500 7200 1340 Balance -275 325 -3112 -640 Weight 196 lb 14.4 oz 196 lb 196 lb Intake: IV Fluids 1985 1529 Oral 0 1840 2560 700 Output: Urine 0 0 Diaz 200 3500 7200 1340 Residual 75 16 Fr 75 Other: Estimated Void Large Oxygen Devices in Use Now: None Neurology Exam: General: Well nourished, well developed, and in no acute distress HEENT: Normocephelic/atraumatic, sclera anicteric, mucous membranes moist Neck: Supple Chest: Clear to auscultation bilaterally Cardiovascular: Regular rate and rhythm without murmurs, rubs, gallops Abdomen: Soft, non-tender/non-distended Extremities: No clubbing, cyanosis, or edema Neurological Findings: Awake, alert, and oriented to person, place, and time. Speech: fluent without dysarthria, repetition intact Cranial Nerve: PERRL, EOM intact, VFF, no nystagmus, face symmetric bilaterally , facial sensation intact, hearing intact to finger rub bilaterally, palate elevates symmetrically, tongue midline, SCM and Trapezius s/s. Motor: s/s throughout, proximal and distal extremities x4 tone/bulk normal. Give way poor activation on the left shoulder abduction. Sensation: intact to LT/PP bilaterally upper and lower extremities Deep Tendon Reflex: 2+ symmetric in the upper/lower extremities, Babinski - down going Finger to nose, rapid alternating movements intact without tremor, no dysdiadochokinesia Gait: not assessed as patient has ankle cuffs. Result Diagrams: 02/04/19 08:25 02/04/19 08:25 Microbiology and Other Data: Microbiology 02/01/19 23:45 Nasal Screen MRSA (PCR) - Final Nasal Mrsa Not Detected Diagnostic Imaging: Portable CXR No evidence of cardiopulmonary disease. Official radiology read pending. EKG Data: Sinus Bradycardia at 59bpm. Some J-point elevation however when compared to old EKG from 2008 no significant change. Assessment/Plan A/P: 1. Subjective left hemiparesthesia involving the face with splitting of the vibratory sensation at the forehead: suggestive of a functional non-organic pathology. There is no stroke on MRI. Recommend outpatient psychiatric evaluation if his symptoms persist. 2. Abnormal MRI- the findings are nonspecific. However, since he has history of cancer, I recommend an MRI brain with and without contrast in 6 months (07/07). 3. Hx of reported seizures: continue Keppra.
[2019-02-04] MEDS: Atorvastatin* 40 MG TAB PO SCH (18:05)
[2019-02-04 18:32] VITALS: BP 106/67
--- NOTE | 2019-02-04 23:03 | EEG ---
ELECTROENCEPHALOGRAPHY: DATE OF SERVICE: 02/04/19 - ROOM #451 DATE READ: 02/04/19 ORDERED BY: Kuldeep Duran MD. INDICATION: Mr. Bowling is a 63-year-old man with subjective left-sided paresthesias. This EEG was obtained to evaluate for epileptiform abnormalities or electrographic seizures. MEDICATIONS: 1. Morphine. 2. Lipitor. 3. Levetiracetam. 4. Lopressor. 5. Ditropan. 6. Ranolazine. 7. Lovenox. 8. Aspirin. 9. Plavix. 10. Multivitamin. 11. Topamax. 12. Tylenol. 13. Ventolin. DURATION OF THE [id number]. CLINICAL STATE: Awake. REPORT: The waking background showed appropriate organization with clearly defined anterior-posterior voltage and frequency gradients. There was a well- defined posterior dominant rhythm of 11 Hz, which was symmetrical and showed normal reactivity. Anteriorly, there was an expected pattern of lower voltage, irregular, mixed faster frequency. Hyper-ventilation and photic stimulation were not performed. Single electrode EKG showed sinus bradycardia. Throughout the recording, there were no epileptiform discharges or electrographic seizures. CLINICAL IMPRESSION: This is a normal awake and drowsy EEG. There were no focal or epileptiform abnormalities. [id number]/[facility] #: [id number] [facility]
--- NOTE | 2019-02-05 03:37 | DS ---
DISCHARGE SUMMARY: DATE OF ADMISSION: 02/01/19 DATE OF DISCHARGE: 02/04/19 PROVIDER: Melissa Luevano NP. PRIMARY CARE PROVIDER: [facility]. ATTENDING PHYSICIAN WHILE IN THE HOSPITAL: Dr. Antelmo Huddleston * (dictated by Melissa Luevano NP). PRIMARY DIAGNOSES: 1. Noncardiac chest pain. 2. Slurred speech, functional nonorganic pathology. 3. Nonspecific abnormal MRI finding. SECONDARY DIAGNOSES: 1. Hypertension. 2. Hyperlipidemia. 3. Coronary artery disease, status post x2 stents at [facility] in 2008. 4. Ohyyq-Bntwzqdcyv-Lhpkk syndrome. 5. Absence seizures. 6. 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 Multiple surgeries and chemo. Recurred after initial remission and then back again after second remission. Scheduled to see urologist for further treatment, _ ____. 7. Urinary incontinence. 8. Insomnia. 9. Hepatitis C positive from tattoo history, resolved on its own. STUDIES COMPLETED IN THE HOSPITAL: The patient had a chest x-ray, radiologist' s impression: No active cardiopulmonary disease. The patient had an electrocardiogram, which showed sinus rhythm at a rate of 56. He had a CTA of the chest and thorax, no evidence of abnormal mass or fluid collection were identified. No pulmonary embolus. He had a CTA of the head and brain with and without contrast, radiologist's impression: Carotid arteries of the neck and head are unremarkable. Intracranial circulations demonstrates no evidence of branch occlusion or aneurysmal dilation. CT of the brain demonstrates no intracranial mass or hemorrhage. The venous sinuses demonstrate no evidence of thrombosis. Arachnoid granulations are noted in the transverse sinus bilaterally. He had venous Doppler, no evidence of deep vein thrombosis was identified. He had an MRI of the brain, radiologist's impression: No acute intracranial abnormality, no definite evidence of metastatic disease. There is a subcentimeter focus of T2 FLAIR hyperintensity in the right frontal lobe is nonspecific, however, with the patient's history of malignancy and proximate to the monzon matter junction, 6 months followup is recommended with contrast. The patient had a nuclear stress test, which was low risk, no evidence of infarct or ischemia. DISCHARGE MEDICATIONS: No new home medications. Continued home medications: 1. Multivitamin 1 tablet p.o. daily. 2. Topamax 50 mg p.o. daily. 3. Aspirin 81 mg p.o. daily. 4. Albuterol HFA inhaler 2 puffs q.6 hours as needed. 5. Nitroglycerin 0.4 mg sublingual q.5 minutes as needed for chest pain. 6. Ranexa 500 mg p.o. b.i.d. 7. Keppra 750 mg p.o. b.i.d. 8. Oxybutynin 500 mg p.o. b.i.d. 9. Clopidogrel 75 mg p.o. daily. 10. Atorvastatin 40 mg p.o. q.p.m. 11. Metoprolol 25 mg p.o. b.i.d. 12. Acetaminophen 650 mg p.o. q.6 hours p.r.n. HISTORY OF PRESENT ILLNESS AND HOSPITAL COURSE: Mr. Bowling is a 63-year-old gentleman inmate at [facility] with a past medical history significant for hypertension and history of AL with 2 stent placements with most recent being in 2008, who presented to the emergency room with complaints of chest pain radiating to his left jaw. Initially, having nitro helped the pain, but it recurred and then received morphine with relief. Some of the chest pain made him feel uneasy with his breathing, palpitations, he broke out into massive sweats, 1 episode of vomiting and also complained of right calf pain and cramping. Due to these findings, we were asked to see and evaluate the patient for admission. During the hospitalization, the patient complained of some difficulty with his speech and left arm numbness and weakness in his left leg. He was then seen and consulted by Neurology. He had a full workup with an echo, CTA of the head and neck, which showed no acute disease and MRI of the brain, which again showed no acute infarct, felt that this was a functional deficit. The patient underwent a nuclear stress test, which was low risk. Due to the negative findings of his exam, he was seen by Neurology and had a negative stress test at that time. He is stable for discharge back to [facility]. REVIEW OF SYSTEMS: The patient denies any fever or chills. He does continue to complain of intermittent chest pain that he reports radiates from his right flank up into his chest. He associates it with his kidney pain. He denies any diaphoresis, sweating, shortness of breath, or palpitations. He denies any abdominal pain, nausea, vomiting, or diarrhea. He denies any dysuria or urinary frequency. The patient does self-cath at baseline. Neurologic: The patient does continue to complain of intermittent difficulty with speaking and tingling on the left side. He is able to move all 4 extremities. Handgrips are equal. Strength is equal in his upper and lower extremities. He is neurologically intact. Skin is intact. PHYSICAL EXAMINATION: General: At this time, Mr. Bowling is alert and oriented, resting on his bed in this hospital room. HEENT: Head is atraumatic, normocephalic. Eyes: EOMs are intact. Sclerae anicteric and not pale. Oral mucosa appeared to be moist. Neck is supple. Lungs are clear to auscultation bilaterally. No wheezes, rales or rhonchi. Cardiac: S1, S2, regular rate and rhythm. No murmurs, rubs or gallops. Abdomen: Soft and nontender. Bowel sounds are present x4. Neurologic: He is awake, alert, oriented x3. Speech is clear at this time. He does have occasional lisp. Handgrips are equal. Upper extremity strength is intact. He does have some decreased sensation noted to the left side per patient's reports. Cranial nerves II through XII are grossly intact. At this time, Mr. Bowling is stable for discharge home. Vital sings are as follows. Blood pressure 118/68, temperature was 97.7, heart rate is 51, respirations 16, O2 saturation 99%. DISCHARGE PLAN: Mr. Bowling will be discharged back to [facility]. Activity as tolerated. 1. Chest pain, noncardiac. The patient had negative troponins x3. He had a low risk nuclear stress test. The patient should continue on his home medications of aspirin 81 mg p.o. daily, clopidogrel 75 mg p.o. daily, atorvastatin 40 mg p.o. daily, metoprolol 12.5 mg p.o. b.i.d. The patient should follow up with a foundation director as an outpatient. Follow up with his primary care provider for further management of his noncardiac chest pain. 2. Difficulty with speech. He was seen in consultation by Neurology, who feels this is a functional deficit. His MRI was negative for acute stroke. The patient continued to have intermittent symptoms of left arm numbness and tingling and decreased sensation on the left side. Speech is intermittently slurred. The patient should continue on Plavix, aspirin, and atorvastatin as previously prescribed and Neurology has recommended a psychiatric evaluation as an outpatient. 3. Coronary artery disease. The patient should continue on his home medications as previously prescribed. 4. Psychiatric issues. The patient should continue on his psychiatric medications as previously prescribed. He does report that he takes Cymbalta. 5. History of absence seizures. The patient should continue on Keppra 750 mg p.o. b.i.d. 6. History of renal cell carcinoma. The patient should follow up with his urologist as an outpatient for further management. 7. Nonspecific abnormality on the MRI. Radiology has recommended due to the patient's history of renal carcinoma repeat MRI in 6 months with and without contrast for further evaluation of the abnormality seen on the MRI. This was also recommended by Neurology. The patient should follow of his primary care provider in 4 to 7 days. He should follow up with his urologist for further management of his reported renal cell carcinoma. The patient was instructed to rerun to the emergency room for any chest pain, shortness of breath, any syncope or any other concerning symptoms. The patient should follow up with his primary care provider in 4 to 7 days. I have discussed this with my attending, Dr. Antelmo Huddleston, he is in agreement with my plan. MELISSA LUEVANO, CHERRY [id number]/[facility] #: [id number] SYDNI
== END 2019-02-04 19:00 | DRG 198 ==
LOC: ED 18:28 → MEDTELE 22:27 → EEVIPCON 22:27 → OBSVTOIN 22:27
PROVIDERS: ADMIT Internal Medicine; ATTEND Internal Medicine
DX: R07.89 Other chest pain (principal); C64.1 Malignant neoplasm of right kidney, except renal pelvis; R47.81 Slurred speech; R93.0 Abnormal findings on diagnostic imaging of skull and head, not elsewhere classified; I10 Essential (primary) hypertension; E78.5 Hyperlipidemia, unspecified; I25.10 Atherosclerotic heart disease of native coronary artery without angina pectoris; I45.6 Pre-excitation syndrome; G40.A09 Absence epileptic syndrome, not intractable, without status epilepticus; R32 Unspecified urinary incontinence; M79.89 Other specified soft tissue disorders; F17.210 Nicotine dependence, cigarettes, uncomplicated; R20.0 Anesthesia of skin; G47.00 Insomnia, unspecified; Z95.5 Presence of coronary angioplasty implant and graft; Z86.19 Personal history of other infectious and parasitic diseases; Z82.49 Family history of ischemic heart disease and other diseases of the circulatory system; Z80.0 Family history of malignant neoplasm of digestive organs; Z88.6 Allergy status to analgesic agent; Z79.82 Long term (current) use of aspirin; Z79.51 Long term (current) use of inhaled steroids; Z79.899 Other long term (current) drug therapy
CPT/HCPCS: 36415; 70496; 70498; 70553; 71045; 71275; 78452; 80048; 80053; 80061; 81003; 81015; 83036; 84484; 85025; 85027; 85379; 85610; 87086; 87389; 87641; 93005; 93017; 93306; 95816; 99283; A9270-GY; A9502; A9579; J1650; J2270; J2785; Q9967

== ENCOUNTER 2019-02-27 20:35 | Emergency (ER) | payer OTHER ==
[2019-02-27] MEDS ORDERED: Morphine 10 MG/ML VIAL (1 ml) IV ONE (20:44)
[2019-02-27] MEDS ORDERED: NS 0.9% 1000 ML** 1,000 ML IV ONE (20:44)
[2019-02-27] MEDS ORDERED: Nitro 2% OINT* (Nitroglycerin) 1 INCH/PAK PAK TOPICAL ONE (20:44)
--- NOTE | 2019-02-27 20:48 | ED ---
HPI Chest Pain - HPI Summary HPI Summary: The patient is a 64 y/o M arriving by ambulance with a chief complaint of sudden onset sharp left anterior CP starting at 1830. He reports that he was at rest reading a book when the pain began. The pain radiates to the left neck and jaw. He additionally c/o SOB and diaphoresis but denies nausea and vomiting. The staff at the correctional facility he [facility] at administered one 324mg ASA , and EMS administered 2 sublingual NTG en route, but his pain is still present rated 9/10 in severity. EKG en route shows ST elevations per transporters. SBP en route was 98mmHg. He notes that he had a cardiac stress test 3 weeks ago without any abnormalities, but he is scheduled for a cardiac cath but unsure of date. He also has bladder cancer with upcoming cystoscopy. PMHx: angina, CAD, HLD, HTN, NM with two stent placements, bladder cancer. FHx: HTN. Light every day cigarette smoker, no EtOH, no substance use. - History of Current Complaint Time Seen by Provider: 02/27/19 20:38 Hx Obtained From: Patient, EMS Onset/Duration: Started Hours Ago - at 1830, Still Present Time of Onset: 18:30 Timing: Lasting Hours Initial Severity: Severe Current Severity: Severe Pain Intensity: 9 Pain Scale Used: 0-10 Numeric Chest Pain Location: Left Anterior Chest Pain Radiates: Yes Chest Pain Radiates To:: Jaw, Neck Character: Sharp/Stabbing Aggravating Factor(s): Nothing Alleviating Factor(s): Nothing - administered 324mg ASA and 2 SL NTG without relief Associated Signs and Symptoms: Positive: Chest Pain, Shortness of Breath, Diaphoresis. Negative: Nausea, Vomiting - Additional Pertinent History Primary Care Physician: [id number] - Allergy/Home Medications Allergies/Adverse Reactions: Allergies Allergy/AdvReac Type Severity Reaction Status Date / Time acetaminophen Allergy Unknown Verified 02/28/19 03:31 Reaction Details Fish Containing Products Allergy Anaphylatic Verified 02/27/19 21:41 Shock NSAIDS (Non-Steroidal Allergy Unknown Verified 02/27/19 21:41 Anti-Inflamma Reaction Details phenazopyridine Allergy Unknown Verified 02/27/19 21:41 [From Pyridium] Reaction Details PMH/Surg Hx/FS Hx/Imm Hx Endocrine/Hematology History: Denies: Hx Diabetes Cardiovascular History: Reports: Hx Angina, Hx Coronary Artery Disease - 2 stents, Hx Hypercholesterolemia, Hx Hypertension, Hx Myocardial Infarction, Other Cardiovascular Problems/Disorders - Robin parkinson white Denies: Hx Pacemaker/ICD Respiratory History: Reports: Hx Asthma, Other Respiratory Problems/Disorders - smoker History: Reports: Other Problems/Disorders - self caths Sensory History: Reports: Hx Contacts or Glasses Denies: Hx Hearing Aid Opthamlomology History: Reports: Hx Contacts or Glasses Neurological History: Reports: Hx Seizures Psychiatric History: Denies: Hx Panic Disorder - Cancer History Cancer Type, Location and Year: 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 NM with 2 stents. Cystoscopy. HERNIA REPAIR Infectious Disease History: No Infectious Disease History: Reports: Hx of Known/Suspected MRSA Denies: Traveled Outside the [place] in Last 30 Days - Family History Known Family History: Positive: Hypertension, Other - positive: colon cancer, CVA - Social History Alcohol Use: None Hx Substance Use: No Substance Use Type: Reports: None Hx Tobacco Use: Yes Smoking Status (MU): Light Every Day Tobacco Smoker Type: Cigarettes Review of Systems Positive: Skin Diaphoresis Positive: Chest Pain - left anterior radiates Positive: Shortness Of Breath Positive: Myalgia - neck and jaw pain radiating from chest All Other Systems Reviewed And Are Negative: Yes Physical Exam - Summary Physical Exam Summary: Appearance: Well-appearing, Well-nourished, lying in bed comfortably Skin: Warm, dry, no obvious rash Eyes: sclera anicteric, no conjunctival pallor ENT: mucous membranes moist, pharynx appears normal Neck: Supple, nontender Respiratory: Clear to auscultation, no signs of respiratory distress Cardiovascular: Normal S1, S2. No murmurs. Normal distal pulses in tibial and radial bilaterally. Abdomen: Soft, nontender, normal active bowel sounds present Musculoskeletal: Normal, Strength/ROM Intact Neurological: A&Ox3, awake and alert, mentation is normal, speech is fluent and appropriate Psychiatric: affect is normal, does not appear anxious or depressed Triage Information Reviewed: Yes Vital Signs On Initial Exam: Initial Vitals Temp Pulse Resp BP Pulse Ox 98.2 F 50 16 126/72 97 02/27/19 20:36 02/27/19 20:36 02/27/19 20:36 02/27/19 20:36 02/27/19 20:36 Vital Signs Reviewed: Yes Diagnostics - Vital Signs Vital Signs Temp Pulse Resp BP Pulse Ox 02/27/19 20:36 98.2 F 50 16 126/72 97 - Laboratory Result Diagrams: 02/27/19 21:00 02/27/19 22:25 Lab Statement: Any lab studies that have been ordered have been reviewed, and results considered in the medical decision making process. - EKG 2040 Cardiac Rate: Bradycardia - 54 bpm EKG Rhythm: Sinus Bradycardia Summary of EKG Findings: Sinus bradycardia at [address] elevations similar to previous one month ago, prior tracings. No STEMI. 133 Cardiac Rate: Bradycardia - 54 bpm EKG Rhythm: Sinus Bradycardia Summary of EKG Findings: Sinus bradycardia at 53 bpm. No changes in T elevations seen on recent prior tracings. Re-Evaluation - Re-Evaluation First Eval Re-Evaluation Time: 02:40 Comment: We discussed results and discharge home. Chest Pain Course/Dx - Course Course Of Treatment: Patient is a 64 y/o M arriving by ambulance with cc of sudden onset sharp left anterior CP that radiates into the neck and jaw starting at 1830 while at rest without relief after ASA and NTG. Normal cardiac stress test 3 weeks ago, upcoming cath. PMHx: CAD, HLD, HTN, NM with two stents placed. In the ED course, the patient was administered fluids, NTH, and Morphine for pain.Blood work reveals INR of 1.44 but is otherwise within normal limits. First troponin of 0.00. EKG at 2040 reveals sinus bradycardia at [address] elevations similar to previous one month ago, prior tracings. Second troponin is 0.00. EKG at 133 reveals sinus bradycardia without changes from previous. I spoke with Dr. Alexis from cardiology, and she reports that she feels with the negative nuclear stress test last month, no change in the EKG, and negative troponin, there is not an emergent need for a cardiac cath now. - Diagnoses Provider Diagnoses: Chest pain - Provider Notifications Discussed Care Of Patient With: Yoanna Alexis - cardiology Time Discussed With Above Provider: 01:15 Instructed by Provider To: Other - I discussed the patient's case with Dr. Alexis who states that there is not an emergent need for cardiac cath as patient had a recent negative nuclear stress test as well as no change in EKG and negative troponin. Discharge - Sign-Out/Discharge Documenting (check all that apply): Patient Departure Patient Received Moderate/Deep Sedation with Procedure: No - Discharge Plan Condition: Good Disposition: HOME Patient Education Materials: Chest Pain (ED) Referrals: Mando NEW,Harshil Muhammad [Primary Care Provider] - Additional Instructions: The tests we ran tonight did not show any indication that your pain is coming from your heart disease. The patient should have an outpatient appointment made with a parachute repairer. - Billing Disposition and Condition Condition: GOOD Disposition: Home - Attestation Statements Document Initiated by Tane: Yes Documenting Scribe: Shruti Lima Provider For Whom Audrey is Documenting (Include Credential): Dr. Shilo Lewis MD Scribe Attestation: Shruti Pradhan scribed for Dr. Shilo Lewis MD on 02/28/19 at 0354. Scribe Documentation Reviewed: Yes Provider Attestation: The documentation as recorded by the Shruti perez accurately reflects the service I personally performed and the decisions made by me, Dr. Shilo Lewis MD Status of [place] Document: Viewed
[2019-02-27 21:13] LABS: ABS Eosinophils 0.1 10^3/ul (0-0.6); ABS Lymphocytes 2.4 10^3/ul (1.0-4.8); ABS Neutrophils 4.9 10^3/ul (1.5-7.7); Eosinophil % 1.6 %; Hematocrit 48 % (42-52); Hemoglobin 16.2 g/dL (14.0-18.0); Lymphocyte % 27.9 %; Mean Corpuscular HGB Conc 34 g/dL (31-36); Mean Corpuscular Hemoglobin 32 pg (27-31); Mean Corpuscular Volume 97 fL (80-94); Red Blood Count 5.01 10^6 /uL (4.18-5.48); Red Cell Distribution Width 14 % (10-15); White Blood Count 8.4 10^3/uL (3.5-10.8)
[2019-02-27 21:14] LABS: Platelet Count 142 10^3/uL (150-450)
[2019-02-27 21:15] LABS: INR 1.44 (0.82-1.09); Mean Platelet Volume 8.9 fL (7.4-10.4)
--- OUTSIDE RECORDS SUMMARY | 2019-02-27 21:37 | XMS REPORT | Continuity of Care Document ---
:1955 External Reference #:[id number] Author Name Sarah Dietrich Care Team Providers Name Role Phone Tono Modi MD Care Team Information Double [employer] Unavailable Payers Date Identification Numbers Payment Provider Subscriber Policy Number: [id number] [facility] Arik Bowling PayID: [id number] [place] [address] Social History Type Date Description Comments Sex Unknown Procedures Date Code Description Status 05/08/2009 73455 Selective Coronary Angioplasty Completed 05/08/2009 18519 S/I/R Inj Proc Vent And Or Atrial Completed 05/08/2009 04840 Coronary Angiography Completed 05/08/2009 85556 Inj Proc LFT Vent/LFT Atrl Angio Completed 05/08/2009 02860 Left Heart Catheterization Completed 05/05/2009 62256 Treadmill Interp/Report Only Completed 05/05/2009 45367 Stress Test Supervsn W/Out I/R Completed Encounters Type Date Location Provider Dx Diagnosis Office Visit 05/08/2009 [facility] Marcus Dominguez, 786.50 Pain Chest Unspec 1:15a radha Montes M.D. Hospitalists 414.9 Ischemic Heart Disease Chronic Unspec 401.9 Hypertension Unspec 272.4 Hyperlipidemia Other Unspec Office Visit 05/07/2009 1:45a [facility] Kaylee Gonzalez 786.50 Pain Chest Assoc,radha Mancilla Unspec Hospitalists 599.9 Urethra & Urinary Tract Unspec Disorder 590.80 Pyelonephritis Unspec Office Visit 05/06/2009 1:30a [facility] Costa Healy 786.50 Pain Chest Assocradha M.D. Unspec Hospitalists 599.70 Hematuria, Unspecified 401.1 Hypertension Benign 272.4 Hyperlipidemia Other Unspec 590.80 Pyelonephritis Unspec Office Visit 05/05/2009 2:15a [facility] Costa Healy 786.50 Pain Chest Assocradha M.D. Unspec Hospitalists 599.70 Hematuria, Unspecified 401.9 Hypertension Unspec 272.4 Hyperlipidemia Other Unspec 590.80 Pyelonephritis Unspec Office Visit 05/04/2009 3:00a [facility] Tono Locodorina, 786.50 Pain Chest Assocradha M.D. Unspec Hospitalists 414.9 Ischemic Heart Disease Chronic Unspec 401.9 Hypertension Unspec
[2019-02-27 21:52] LABS: Albumin 4.3 g/dL (3.2-5.2); CO2 Carbon Dioxide 21 mmol/L (22-32); Calcium 9.5 mg/dL (8.6-10.3); Chloride 110 mmol/L (101-111); Sodium 139 mmol/L (135-145)
[2019-02-27 21:58] LABS: ALT 44 U/L (7-52); Albumin/Globulin Ratio 1.7 (1-3); Alkaline Phosphatase 54 U/L (34-104); BUN/Creatinine Ratio 12.8 (8-20); Blood Urea Nitrogen 16 mg/dL (6-24); EGFR African American 70.6 (>60); EGFR Non-African American 58.3 (>60); Globulin 2.5 g/dL (2-4); Glucose 96 mg/dL (70-100); Total Protein 6.8 g/dL (6.4-8.9)
[2019-02-27 22:02] LABS: Anion Gap 8 mmol/L (2-11)
[2019-02-27] MEDS ORDERED: Morphine 4 MG/ML VIAL (1 ml) 4 MG/ML VIAL IV ONE (22:22)
[2019-02-27 22:46] LABS: Potassium Redraw 3.8 mmol/L (3.5-5.0)
[2019-02-28] MEDS ORDERED: Lidocaine 2% VISCOUS* 15 ML UDC PO ONE (01:14)
[2019-02-28] MEDS ORDERED: Al Hydrox/Mg Hydrox/Simet LIQ* 30 ML UDC PO ONE (01:14)
[2019-02-28 04:02] VITALS: BP 112/71
== END 2019-02-28 04:02 | disposition home or self-care (01) ==
LOC: ED 20:35
DX: R07.89 Other chest pain (principal); R06.02 Shortness of breath; R61 Generalized hyperhidrosis; R00.1 Bradycardia, unspecified; C67.9 Malignant neoplasm of bladder, unspecified; I25.2 Old myocardial infarction; I10 Essential (primary) hypertension; I45.6 Pre-excitation syndrome; Z95.5 Presence of coronary angioplasty implant and graft; Z88.8 Allergy status to other drugs, medicaments and biological substances; Z88.6 Allergy status to analgesic agent; Z91.013 Allergy to seafood; F17.210 Nicotine dependence, cigarettes, uncomplicated
CPT/HCPCS: 36415; 71045; 80053; 84484; 85025; 85610; 93005; 96361; 96374; 96376; 99284; A9270-GY; J2270